=== PATIENT | male | born 1955 ===

== ENCOUNTER 2020-09-05 21:18 | Inpatient (IN) | payer MEDICAID ==
[~2020-09-05] VITALS: Ht 172.7 cm; Wt 79.4 kg
[2020-09-05] MEDS ORDERED: IV NORMAL SALINE 1000 ML BAG IV ONE (21:45)
[2020-09-05 22:08] LABS: ETHANOL < 3 MG/DL (0-0)
[2020-09-05 22:18] LABS: THYROID STIMULATING HORMONE 3.594 mIU/mL (0.358-3.740)
[2020-09-05 22:26] LABS: HEMATOCRIT 42.2 % (36.7-47.1); MEAN CORPUSCULAR HEMOGLOBIN 31.4 uug (23.8-33.4); MEAN CORPUSCULAR VOLUME 93.1 fL (73.0-96.2); PLATELET COUNT (AUTO) 161 K/uL (152-348)
[2020-09-05 22:29] LABS: ALANINE AMINOTRANSFERASE 12 U/L (16-63); ALKALINE PHOSPHATASE 66 U/L (50-136); ASPARTATE AMINOTRANSFERASE 42 U/L (15-37); BILIRUBIN,DIRECT 0.6 mg/dL (0.0-0.2); BILIRUBIN,TOTAL 1.7 mg/dL (0.2-1.0); CARBON DIOXIDE 23 mmol/L (21-32); CHLORIDE 102 mmol/L (98-107); CREATININE 1.2 mg/dL (0.6-1.3); GLUCOSE 101 mg/dL (74-106); POTASSIUM 3.6 mmol/L (3.5-5.1); TOTAL PROTEIN, SERUM 6.9 g/dL (6.4-8.2); UREA NITROGEN, BLOOD 26 mg/dL (7-18)
[2020-09-05] MEDS ORDERED: ASPIRIN 325 MG TABLET PO ONE (22:30)
[2020-09-05 22:42] LABS: ACETAMINOPHEN < 2.0 ug/mL (10-30)
[2020-09-05] MEDS ORDERED: ASPIRIN 325 MG TABLET ONE (22:45)
--- NOTE | 2020-09-05 22:54 | NUR ---
Patient asked to use the restroom, was assisted to use the restroom.
[2020-09-05] MEDS ORDERED: NEOMY/BACITRA/POLYMYXIN B OINT UD PACKET TP ONE ×2 (23:00→23:22)
[2020-09-05] MEDS ORDERED: TDAP DIPH,PERTUSS,TET VAC/PF 0.5 ML DISP.SYRIN IM ONE ×2 (23:00→23:23)
--- NOTE | 2020-09-05 23:09 | NUR ---
Patient c/o of back pain 08/25, MD Cagle made aware.
--- NOTE | 2020-09-05 23:09 | NUR ---
Patient SBP ranging from 210s to 220s upon checking. MD Cagle made aware.
[2020-09-05] MEDS ORDERED: hydrALAZINE HCL 20 MG/1 ML VIAL IV ONE (23:15)
[2020-09-05] MEDS ORDERED: HYDROCODONE/APAP 5-325MG TABLET PO ONE (23:15)
[2020-09-05] MEDS ORDERED: hydrALAZINE HCL 20 MG/1 ML VIAL ONE (23:23)
[2020-09-05] MEDS ORDERED: HYDROCODONE/APAP 5-325MG TABLET ONE (23:23)
[2020-09-05 23:55] LABS: LYMPHOCYTES % (MANUAL) 28 % (20-40); MONOCYTES % (MANUAL) 15 % (2-10); NEUTROPHILS % (MANUAL) 57 % (42-75)
[2020-09-06 00:28] VITALS: BP 184/91
[2020-09-06] MEDS ORDERED: hydrALAZINE HCL 20 MG/1 ML VIAL ONE (00:44)
[2020-09-06] MEDS ORDERED: hydrALAZINE HCL 20 MG/1 ML VIAL IV ONE (00:45)
--- NOTE | 2020-09-06 00:54 | NUR ---
Patient resting upright on his bed, watching TV, no acute distress noted.
[2020-09-06 00:59] LABS: *BILIRUBIN,URIN NEGATIVE (NEGATIVE); *BLOOD, URINE NEGATIVE (NEGATIVE); *CLARITY,URINE CLEAR (CLEAR); *COLOR,URINE YELLOW (YELLOW); *KETONES,URINE 1+ (NEGATIVE); LEUKOCYTE ESTERASE ,URINE NEGATIVE (NEGATIVE); NITRITE, URINE NEGATIVE (NEGATIVE); UGLUCOSE NEGATIVE (NEGATIVE)
[2020-09-06 01:48] LABS: BACTERIA,URINE NONE SEEN /HPF (NONE SEEN); RBC,URINE 0-3 /HPF (0-3); SQUAMOUS EPITHELIAL CELL,UR NONE SEEN /HPF (NONE SEEN); WBC,URINE 0-3 /HPF (0-3)
[2020-09-06 01:53] LABS: *AMPHETAMINE, URINE NEGATIVE (NEGATIVE); *CANNABINOID, URINE NEGATIVE (NEGATIVE); *COCCAINE, URINE NEGATIVE (NEGATIVE); *OPIATE, URINE NEGATIVE (NEGATIVE); *PHENCYCLIDINE SCREEN,URINE NEGATIVE (NEGATIVE)
--- NOTE | 2020-09-06 02:43 | NUR ---
Patient will be going to room 310 telemetry.
--- NOTE | 2020-09-06 03:48 | NUR ---
Report given to RN Will.
--- NOTE | 2020-09-06 03:52 | NUR ---
[facility] called, Charli COHN paged.
--- NOTE | 2020-09-06 04:20 | NUR ---
[facility] called back, dispatcher states Charli COHN will be paged again.
--- NOTE | 2020-09-06 04:22 | NUR ---
MD Augustin connected to MD Cagle.
--- NOTE | 2020-09-06 05:17 | NUR ---
Pt. admitted to 310 telemetry, under care of Dr. Augustin. [place] completed
--- NOTE | 2020-09-06 05:20 | NUR ---
Patient admitted in tele floor under the care of Dr Augustin. Patient alert oriented, no sob no chest pain, tele monitor sinus rhythm sinus colleen. Patient has back of head wound, right and left arms multiple abrasion and scabs. Patient has no complain of pain, cont to monitor.
[2020-09-06] MEDS ORDERED: MAGNESIUM HYDROXIDE 30 ML LIQUID UDC PO PRN (06:00)
[2020-09-06] MEDS ORDERED: ZOLPIDEM 5 MG TABLET PO PRN (06:00)
[2020-09-06] MEDS ORDERED: ONDANSETRON 4 MG/2 ML VIAL IV PRN (06:00)
[2020-09-06] MEDS ORDERED: Z GUARD REMEDY PASTE 57 GM TUBE TOP PRN (06:00)
[2020-09-06] MEDS ORDERED: ACETAMINOPHEN 325 MG TABLET PO PRN (06:00)
[2020-09-06 06:56] LABS: HEMATOCRIT 41.9 % (36.7-47.1); MEAN CORPUSCULAR HEMOGLOBIN 32.1 uug (23.8-33.4); MEAN CORPUSCULAR VOLUME 94.8 fL (73.0-96.2); PLATELET COUNT (AUTO) 165 K/uL (152-348)
--- NOTE | 2020-09-06 07:15 | NUR ---
RECEIVED PATIENT IN BED AWAKE. PATIENT ON TELE WITH SINUS RHYTHM. NO COMPLAIN OF ANY SOB, PAIN OR DISCOMFORT AT THIS TIME. CALL LIGHT WITHIN REACH WILL CONTINUE TO MONITOR.
--- NOTE | 2020-09-06 07:19 | NUR ---
notify dr. mathur patient elevated bp of 192/80. endorsed to next shift.
[2020-09-06 07:27] LABS: CREATININE 1.1 mg/dL (0.6-1.3); MAGNESIUM 2.2 mg/dL (1.8-2.4); PHOSPHOROUS 4.2 mg/dL (2.5-4.9); POTASSIUM 4.2 mmol/L (3.5-5.1)
--- NOTE | 2020-09-06 08:40 | NUR ---
patient leaving against medical advice, patient told about risks of leaving and the need for treatment, but continued to refuse. Dr. Bailey and nursing public area supervisor sandy.
[2020-09-06 14:20] LABS: BAND % (MANUAL) 2 % (0-10); EOSINOPHILS % (MANUAL) 3 % (0-8); LYMPHOCYTES % (MANUAL) 22 % (20-40); MONOCYTES % (MANUAL) 21 % (2-10); NEUTROPHILS % (MANUAL) 52 % (42-75)
== END 2020-09-06 08:45 | disposition left against medical advice (07) | DRG 190 ==
LOC: ER 21:18 → TELE3 09-06 05:02
PROVIDERS: ADMIT Internal Medicine; ATTEND Internal Medicine
DX: I21.4 Non-ST elevation (NSTEMI) myocardial infarction (principal); N17.0 Acute kidney failure with tubular necrosis; Z59.0 Homelessness; R74.01 Elevation of levels of liver transaminase levels; Z20.822 Contact with and (suspected) exposure to COVID-19; T14.8XXA Other injury of unspecified body region, initial encounter; W19.XXXA Unspecified fall, initial encounter; Y93.9 Activity, unspecified; Y92.89 Other specified places as the place of occurrence of the external cause
CPT/HCPCS: 36415; 70030-TC; 70450; 71045; 72125; 83735; 84100; 84443; 85025; 85730; 90715; 93005; A4663; G0378; G0480; J0360; J7030